=== PATIENT | female | born 1985 | race Caucasian/White ===

== ENCOUNTER 2016-12-21 20:17 | Emergency (ER) | payer OTHER ==
[~2016-12-21] VITALS: Wt 66.0 kg
[2016-12-21] MEDS ORDERED: KETOROLAC 15 MG INJ IM STA (22:36)
[2016-12-21] MEDS ORDERED: ONDANSETRON (ODT) 4 MG TAB ODT STA (22:36)
[2016-12-21] MEDS ORDERED: DIAZEPAM 5 MG TAB PO ONE (23:00)
--- NOTE | 2016-12-21 23:25 | RADRPT ---
PROCEDURE: Right rib x-rays CLINICAL INDICATION: 31-year-old female. Mid anterior rib pain. TECHNIQUE: Two-views of the right ribs COMPARISON: None available. FINDINGS: No displaced right rib fracture is identified. Right lung is clear. The imaged mediastinum is normal. Negative for pleural effusion or pneumothorax. IMPRESSION: No right rib fracture is identified, although the presence of a nondisplaced rib fracture cannot be excluded. RPTAT: HCTS Physician Delfina Date Time Electronically viewed and signed by Physician Delfina on 12/21/2016 23:25 CS/
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
[2016-12-22] MEDS ORDERED: DIAZ-90 PO (00:17)
[2016-12-22] MEDS ORDERED: NAPR-260 PO (00:17)
[2016-12-22 00:34] VITALS: BP 116/67; PULSE 67; RESP 16; TEMP 97.8
== END 2016-12-22 00:36 | disposition home or self-care (01) ==
LOC: FTE 20:17
DX: S16.1XXA Strain of muscle, fascia and tendon at neck level, initial encounter (principal); S39.012A Strain of muscle, fascia and tendon of lower back, initial encounter; V43.93XA Unspecified car occupant injured in collision with pick-up truck in traffic accident, initial encounter
CPT/HCPCS: 71100; 96372; J1885; Z7502; Z7610